=== PATIENT | female | born 1985 | race African-American/Black ===

== ENCOUNTER 2019-12-21 23:16 | Inpatient (IN) | payer BC ==
--- NOTE | 2019-12-21 23:30 | PDOC ---
ED Treatment Course - LABORATORY CBC & Chemistry Diagram: 12/22/19 00:10 12/22/19 00:10 Medical Decision Making - Medical Decision Making 12/21/19 23:29 Patient seen by the advanced practice provider under my supervision. Ancillary testing reviewed as necessary. I agree with plan as outlined by the advanced practice provider. Discharge - Discharge Information Problems reviewed: Yes Clinical Impression/Diagnosis: Abdominal pain, Elevated lipase - Follow up/Referral Referrals: Shyanne Ware MD [Primary Care Provider] - - Patient Discharge Instructions - Post Discharge Activity
[2019-12-21 23:32] VITALS: BMI 31.9
[2019-12-21] MEDS ORDERED: MAG HYDROX/AL HYDROX/SIMETH 30 ML UNIT-DOSE CUP PO ONE (23:33)
[2019-12-21] MEDS ORDERED: PANTOPRAZOLE SODIUM 40 MG VIAL IVPUSH ONE (23:33)
[2019-12-21] MEDS ORDERED: ONDANSETRON 4 MG/2 ML VIAL IVPUSH ONE (23:34)
--- NOTE | 2019-12-21 23:40 | PDOC ---
History of Present Illness - General Chief Complaint: Pain Stated Complaint: ABDOMINAL PAIN Time Seen by Provider: 12/21/19 23:26 - History of Present Illness Initial Comments: 34-year-old female no significant past medical history presents the ED complaining of nausea vomiting diarrhea since Thursday with associated intermittent crampy abdominal pain. Patient states on Thursday she felt bloated and took some magnesium citrate which caused her to have abdominal pain and several bouts of diarrhea followed by numerous nonbloody nonbilious episodes of vomiting. Patient states that the vomiting and diarrhea have subsided today however the crampy abdominal pain has persisted. Patient has not taken any medicine for relief. Patient states she is tolerating small amounts of p.o. fluid and food. Of note patient has a past surgical history of abdominoplasty as well as in August. Pt otherwise denies: fevers, chills, syncope, lightheadedness, dizziness, headaches, neck pain, chest pain, shortness of breath, palpitations, back pain, constipation, dysuria, hematuria 12/21/19 23:35 Past History - Medical History Allergies/Adverse Reactions: Allergies Allergy/AdvReac Type Severity Reaction Status Date / Time No Known Allergies Allergy Verified 12/21/19 23:32 Home Medications: Ambulatory Orders Pnv No.95/Ferrous Fum/Folic AC [ Vitamin Tablet] 1 each PO DAILY 09/09/19 Sertraline HCl [Zoloft] 100 mg PO DAILY 09/09/19 COPD: No - Surgical History Gastric Stapling: Yes - Immunization History Td Vaccination: No (unknown) Immunization Up to Date: Yes - Psycho-Social/Smoking History Smoking Status: No Smoking History: Never smoked Years of Tobacco Use: 0 Have you smoked in the past 12 months: No Number of Cigarettes Smoked Daily: 0 Cigars Per Day: 0 Information on smoking cessation initiated: No - Substance Abuse Hx (Audit-C & DAST Scrn) How often the patient has a drink containing alcohol: Monthly or less Number of drinks the patient has on a typical day: 1 or 2 How often the patient has six or more drinks on one occasion: Never Score: In Men: 4 or > Positive; In Women: 3 or > Positive: 1 Screen Result (Pos requires Nsg. Audit-10AR): Negative In the last yr the pt used illegal drug/Rx for NonMed reason: No Score: Yes response is considered Positive: 0 Screen Result (Positive result requires Nsg. DAST-10): Negative Review of Systems - Review of Systems Constitutional: No: Fever, Weakness HEENTM: No: Blurred Vision, Difficulty Swallowing Respiratory: No: Cough, Shortness of Breath, SOB with Exertion, SOB at Rest Cardiac (ROS): No: Chest Pain, Lightheadedness ABD/GI: Yes: Abdominal Distended, Diarrhea, Nausea, Vomiting. No: Blood Streaked Bowels, Constipated : No: Burning, Dysuria Musculoskeletal: No: Back Pain, Gout, Joint Pain, Muscle Weakness Integumentary: No: Bruising Neurological: No: Headache, Numbness, Paresthesia, Seizure Hematologic/Lymphatic: No: Anemia *Physical Exam - Vital Signs Last Vital Signs Temp Pulse Resp BP Pulse Ox 97.8 F 90 17 121/66 97 12/21/19 23:26 12/21/19 23:26 12/21/19 23:26 12/21/19 23:26 12/21/19 23:26 - Physical Exam Gen: AAOx 3, no acute distress, comfortable, no signs of respiratory distress HENT: atraumatic, normocephalic with no laceration or contusion. Nasal mucosa without erythema. Oropharynx without erythema or exudates. Mucous membranes moist. EYES: PERRL, EOM intact, conjunctiva pink NECK: supple; trachea midline; no JVD, no lymphadenopathy, or thyromegaly CV: RRR no murmurs, gallops, or rubs. CHEST: CTA b/l no wheezing, rales or rhonchi ABD: +BS/ND. mildly TTP in all 4 quadrants; soft, no rebound, no guarding EXTREMITY: no cyanosis or erythema. 2+ dorsalis pedis, posterior tibial, and radial pulse. No pedal edema; no calf swelling or tenderness SKIN: no rash, warm and dry, no diaphoresis HEME: no purpura or ecchymosis NEURO: normal speech, CN II-XII intact, sensation intact, normal gait, no cerebellar deficits MS: 5/5 strength in all extremities, FROM intact in all extremities. 12/21/19 23:41 ED Treatment Course - LABORATORY CBC & Chemistry Diagram: 12/22/19 00:10 12/22/19 00:10 Medical Decision Making - Medical Decision Making 34-year-old female no significant past medical history 4 days of diffuse abdominal pain with associated nausea vomiting diarrhea. Past surgical history of abdominal plasty and . Vital signs stable Plan Will obtain labs to assess for infection electrolyte abnormalities anemia pancreatitis hepatitis and Will give Maalox Zofran and Protonix for symptomatic relief CT AP with contrast to assess for abdominal pathology Will reassess based on results Labs show: WBC 6.8 H&H: 12.6/36.5 PLT: 306 Cr: 0.8 AST 63 Alk Phos 145 Lipase: 698 T Bili 0.4 Upon further interview pt admits to ETOH abuse drinking 5 beers or more a day everyday for "quite some time now" Wet read of US shows gallstones with CBD dilation Pending CT and US read labs suspicious for Gallstone pancreatitis vs Cholecystitis w/ alcoholic pancreatitis. Pt made NPO and given 2L NS. Pt admitted to medicine pending official CT and US reads for further management 12/22/19 01:28 12/22/19 01:30 Discharge - Discharge Information Problems reviewed: Yes Clinical Impression/Diagnosis: Elevated lipase Abdominal pain Qualifiers: Abdominal location: right upper quadrant Qualified Code(s): R10.11 - Right upper quadrant pain - Admission Yes - Follow up/Referral Referrals: Shyanne Ware MD [Primary Care Provider] - - Patient Discharge Instructions - Post Discharge Activity
[2019-12-21] MEDS ORDERED: SODIUM CHLORIDE 0.9% 500 ML INFUS.BAG IV ONE (23:43)
[2019-12-22] MEDS ORDERED: MAG HYDROX/AL HYDROX/SIMETH 30 ML UNIT-DOSE CUP ONE (00:02)
[2019-12-22] MEDS ORDERED: PANTOPRAZOLE SODIUM 40 MG VIAL ONE (00:03)
[2019-12-22 00:32] LABS: BASO % 0.6 % (0-2.0); EOS % 1.9 % (0-4.5); HEMATOCRIT 36.5 % (32.4-45.2); HEMOGLOBIN 12.6 GM/dL (10.7-15.3); LYMPH % 23.1 % (8-40); MCH 28.2 pg (25.7-33.7); MCHC 34.5 g/dl (32.0-36.0); MEAN CELL VOLUME 81.8 fl (80-96); MEAN PLT VOLUME 7.7 fl (7.5-11.1); MONO % 9.2 % (3.8-10.2); NEUT % 65.2 % (42.8-82.8); PLATELET COUNT 306 K/MM3 (134-434); RBC 4.47 M/mm3 (3.60-5.2); RDW 14.7 % (11.6-15.6); WHITE BLOOD COUNT 6.8 K/mm3 (4.0-10.0)
[2019-12-22 00:46] LABS: INR 0.98 (0.83-1.09); PROTHROMBIN TIME (PATIENT) 11.6 SEC (9.7-13.0)
[2019-12-22 00:49] LABS: ACTIVATED PTT 44.2 SECONDS (25.2-36.5)
[2019-12-22 01:02] LABS: ALBUMIN 3.7 g/dl (3.4-5.0); BILIRUBIN,TOTAL 0.4 mg/dL (0.2-1); BLOOD UREA NITROGEN 10.9 mg/dL (7-18); CALCIUM 8.8 mg/dL (8.5-10.1); CREATININE 0.8 mg/dL (0.55-1.3); POTASSIUM 3.5 mmol/L (3.5-5.1)
[2019-12-22] MEDS ORDERED: SODIUM CHLORIDE 0.9% 500 ML INFUS.BAG IV ONE (01:12)
[2019-12-22 02:06] LABS: EPI CELLS >36 /uL (0-25.1); HYALINE CASTS 0 /uL (0-3.1); URINE APPEARANCE CLEAR; URINE BACTERIA 605 /uL (0-1359); URINE BILIRUBIN NEGATIVE (NEGATIVE); URINE COLOR YELLOW; URINE GLUCOSE (UA) NEGATIVE (NEGATIVE); URINE KETONE NEGATIVE (NEGATIVE); URINE LEUK ESTERASE TRACE (NEGATIVE); URINE NITRITE NEGATIVE (NEGATIVE); URINE PROTEIN NEGATIVE (NEGATIVE); URINE RBC 4 /uL (0-23.9); URINE UROBILINOGEN 0.2 mg/dL (0.2-1.0); URINE WBC 19 /uL (0-25.8)
--- NOTE | 2019-12-22 03:03 | PN ---
Teaching Attending Note Name of Resident: Yves Akers ATTENDING PHYSICIAN STATEMENT I saw and evaluated the patient. I reviewed the resident's note and discussed the case with the resident. I agree with the resident's findings and plan as documented. SUBJECTIVE: Patient is a 34 year old woman with PMH of Alcohol abuse, Abdominoplasty, Depres hasmukh (on Zoloft), Gestational diabetes and (August 2019 - baby still in NICU) who presents to the ER complaining of nausea, vomiting, diarrhea and intermittent crampy abdominal pain for 4 days. Patient states on Thursday she felt bloated and took some Magnesium citrate which caused her to have abdominal pain and several bouts of diarrhea followed by numerous nonbloody nonbilious episodes of vomiting. Patient states that the vomiting and diarrhea subsided today but the crampy abdominal pain has persisted. Patient has not taken any medicine for relief. Patient states she is tolerating small amounts of fluid and food. Patient denies fevers, chills, syncope, lightheadedness, dizziness, headaches, neck pain, chest pain, shortness of breath, palpitations, back pain, constipation, dysuria or hematuria. Denies tobacco or illicit drug use. No sick contacts or recent travels. Family history is unremarkable. OBJECTIVE: Alert Vital Signs Period Temp Pulse Resp BP Sys/Maya Pulse Ox Last 24 Hr 97.8 F 90 17 121/66 97 HEENT: No Jaundice, eye redness or discharge, PERRLA, EOMI. Normocephalic, atraumatic. External ears are normal and hearing is grossly intact. No nasal discharge. Neck: Supple, nontender. No palpable adenopathy or thyromegaly. No JVD Chest: Good effort. Clear to auscultation and percussion. Heart: Regular. No S3, rub or murmur Abdomen: Not distended, soft, RUQ and epigastric tenderness and no HSM. No rebound or guarding. Normal bowel sounds. Ext: Peripheral pulses intact. No leg edema. Skin: Warm and dry. No petechiae, rash or ecchymosis. Neuro: Alert. Oriented x3. CN 2-12 grossly intact. Sensation grossly intact in all four extremities and DTR are symmetric. Psych: Appropriate mood and affect. Good insight. Home Medications Medication Instructions Recorded Pnv No.95/Ferrous Fum/Folic AC 1 each PO DAILY 09/09/19 [ Vitamin Tablet] Sertraline HCl [Zoloft] 100 mg PO DAILY 09/09/19 Abnormal Lab Results 12/22/19 12/22/19 12/22/19 00:10 00:10 01:40 PTT (Actin FS) 44.2 H AST 63 H Alkaline Phosphatase 145 H Lipase 698 H Ur Specific [place] 1.008 L Urine Blood 1+ H Current Medications Generic Name Dose Route Start Last Admin Trade Name Patt PRN Reason Stop Dose Admin Lactated Ringer's 1,000 mls @ 200 mls/hr 12/22/19 04:15 Lactated Ringers Solution IV ASDIR HUNTER Piperacillin Sod/Tazobactam 50 mls @ 100 mls/hr 12/22/19 04:30 Sod 3.375 gm/ Dextrose IVPB Q8H-IV HUNTER Protocol Piperacillin Sod/Tazobactam 50 mls @ 100 mls/hr 12/22/19 04:45 Sod 3.375 gm/ Dextrose IVPB 12/23/19 02:29 Q8H-IV HUNTER Protocol Ketorolac Tromethamine 15 mg 12/22/19 04:23 Toradol Injection - IM 12/22/19 14:29 Q6H PRN PAIN LEVEL 7 - 10 ASSESSMENT AND PLAN: 1. Cholecystitis/Gallstone pancreatitis - Preliminary read of the abdomen ultrasound shows gall stones and common bile duct dilatation. Result of CT abdomen/pelvis show probable cholecystitis without significant biliary duct dilatation. ER staff prescribed Mylanta, Zofran, protonix and IV NS for the patient. Hepatitis serology pending. Will keep her NPO, get lipid profile, MRCP, trend LFTs, treat with IV LR at 200 ml/hour, use IV Morphine for pain control and consult GI and Surgery. Viral testing for COVID-19 ordered and patient placed on airborne, droplet and contact isolation. EKG shows NSR at 72/minute and QTc [address]-T wave changes. Will continue comprehensive care for all of patients comorbid conditions. 2. Alcohol abuse - Implement [facility] alcohol withdrawal protocol and do neurochecks. Implement seizure, fall and aspiration precautions. Treat with IV Banana bag, thiamine and folic acid. Monitor and replete electrolytes (Ca,Mg,K,P). Counseled patient about abstaining from alcohol. Will consult intelligence research specialist and refer to alcohol detox upon discharge. 3. Obesity Counseled on the risks associated with obesity. Will provide patient all the necessary assistance, counseling and positive reinforcement to facilitate weight loss. Consult car changer. 4. DVT prophylaxis - Lovenox 40 mg SQ q 24 hours. 5. Advance directives - Full code
[2019-12-22] MEDS ORDERED: LACTATED RINGERS SOLUTION 1,000 ML IV SCH ×4 (04:15→15:50)
[2019-12-22] MEDS ORDERED: KETOROLAC TROMETHAMINE 30 MG/1 ML VIAL IM PRN (04:23)
[2019-12-22] MEDS ORDERED: PIPERACILLIN/TAZOB 3.375 GM 3.375 GM/50 ML BAG IVPB ONE ×2 (04:50→11:50)
[2019-12-22] MEDS: PIPERACILLIN/TAZOB 3.375 GM 3.375 GM in DEXTROSE 5%-WATER - 50 ML IVPB SCH ×3 (04:56→16:40)
--- NOTE | 2019-12-22 05:13 | HP ---
CHIEF COMPLAINT: Nausea, vomiting and diarrhea since 12/16 + intermittent abdominal pain PCP: Dr. Shyanne Ware HISTORY OF PRESENT ILLNESS: Pt is a 34 yo F with PMHx of alcohol abuse, abdominoplasty and . Pt states she has been having nausea, vomiting, diarrhea and intermittent crampy abdominal pain since 12/16. Pt states she felt bloated and took Magnesium Citrate, which caused abdominal pain, nausea and vomiting. Pt states she has not had any episodes of vomiting or diarrhea since yesterday. However, she still has abomdinal pain and still constipated with no BM in 2 days. Pt has 3/10 pain currently, but it can reach up to 7/10 at its most severe. Pt states it is mainly in the middle of her stomach without radiation, and describes the pain as a crampy, bloated sensation. Pt states she can only tolerate small amounts of food. Pt denies fever, chills, night sweats, CP, cough, SOB, urinary urgency or frequency. FAMILY HISTORY: Unremarkable Recent Travel: Denies PAST MEDICAL HISTORY: Denies PAST SURGICAL HISTORY: Abdominoplasty Social History: Smoking: Denies Alcohol: 5 beers daily Drugs: Denies Allergies No Known Allergies Allergy (Verified 12/21/19 23:32) HOME MEDICATIONS: Home Medications Medication Instructions Recorded Pnv No.95/Ferrous Fum/Folic AC 1 each PO DAILY 09/09/19 [ Vitamin Tablet] Sertraline HCl [Zoloft] 100 mg PO DAILY 09/09/19 REVIEW OF SYSTEMS CONSTITUTIONAL: Absent: fever, chills, diaphoresis, generalized weakness, malaise, loss of appetite, weight change HEENT: Absent: rhinorrhea, nasal congestion, throat pain, throat swelling, difficulty swallowing, mouth swelling, ear pain, eye pain, visual changes CARDIOVASCULAR: Absent: chest pain, syncope, palpitations, irregular heart rate, lightheadedness, peripheral edema RESPIRATORY: Absent: cough, shortness of breath, dyspnea with exertion, orthopnea, wheezing, stridor, hemoptysis GASTROINTESTINAL: Admits to nausea, constipation and RUQ and epigastric abdominal pain Absent: abdominal distension, vomiting, diarrhea, melena, hematochezia GENITOURINARY: Absent: dysuria, frequency, urgency, hesitancy, hematuria, flank pain, genital pain MUSCULOSKELETAL: Absent: myalgia, arthralgia, joint swelling, back pain, neck pain SKIN: Absent: rash, itching, pallor HEMATOLOGIC/IMMUNOLOGIC: Absent: easy bleeding, easy bruising, lymphadenopathy, frequent infections ENDOCRINE: Absent: unexplained weight gain, unexplained weight loss, heat intolerance, cold intolerance NEUROLOGIC: Absent: headache, focal weakness or paresthesias, dizziness, unsteady gait, seizure, mental status changes, bladder or bowel incontinence PSYCHIATRIC: Absent: anxiety, depression, suicidal or homicidal ideation, hallucinations. PHYSICAL EXAMINATION Vital Signs - 24 hr 12/21/19 23:26 Temperature 97.8 F Pulse Rate 90 Respiratory 17 Rate Blood Pressure 121/66 O2 Sat by Pulse 97 Oximetry (%) GENERAL: Awake, alert, and fully oriented, in no acute distress. HEAD: Normal with no signs of trauma. EYES: Pupils equal, round and reactive to light, extraocular movements intact, sclera anicteric, conjunctiva clear. No lid lag. EARS, NOSE, THROAT: Ears normal, nares patent, oropharynx clear without exudates. Moist mucous membranes. NECK: Normal range of motion, supple without lymphadenopathy, JVD, or masses. LUNGS: Breath sounds equal, clear to auscultation bilaterally. No wheezes, and no crackles. No accessory muscle use. HEART: Regular rate and rhythm, normal S1 and S2 without murmur, rub or gallop. ABDOMEN: Epigastric and RUQ tenderness. Soft, nontender, not distended, normoactive bowel sounds, no guarding, no rebound, no masses. No hepatomegaly or splenomegaly. MUSCULOSKELETAL: Normal range of motion at all joints. No bony deformities or tenderness. No CVA tenderness. UPPER EXTREMITIES: 2+ pulses, warm, well-perfused. No cyanosis. No clubbing. No peripheral edema. LOWER EXTREMITIES: 2+ pulses, warm, well-perfused. No calf tenderness. No peripheral edema. NEUROLOGICAL: Cranial nerves II-XII intact. Normal speech. Normal gait. PSYCHIATRIC: Cooperative. Good eye contact. Appropriate mood and affect. SKIN: Warm, dry, normal turgor, no rashes or lesions noted, normal capillary refill. Laboratory Results - last 24 hr 12/22/19 12/22/19 12/22/19 00:10 00:10 00:10 WBC 6.8 RBC 4.47 Hgb 12.6 Hct 36.5 MCV 81.8 MCH 28.2 MCHC 34.5 RDW 14.7 Plt Count 306 MPV 7.7 Absolute Neuts (auto) 4.4 Neutrophils % 65.2 Lymphocytes % 23.1 Monocytes % 9.2 Eosinophils % 1.9 D Basophils % 0.6 Nucleated RBC % 0 PT with INR INR PTT (Actin FS) Sodium Potassium Chloride Carbon Dioxide Anion Gap BUN Creatinine Est GFR (CKD-EPI)AfAm Est GFR (CKD-EPI)NonAf Random Glucose Lactic Acid Calcium Total Bilirubin AST ALT Alkaline Phosphatase Total Protein Albumin Lipase Beta HCG, Quant < 1.0 Urine Color Urine Appearance Urine pH Ur Specific [place] Urine Protein Urine Glucose (UA) Urine Ketones Urine Blood Urine Nitrite Urine Bilirubin Urine Urobilinogen Ur Leukocyte Esterase Urine WBC (Auto) Urine RBC (Auto) Urine Casts (Auto) U Epithel Cells (Auto) Urine Bacteria (Auto) Blood Type O POSITIVE Antibody Screen Positive Antibody Identification Anti-c Antigen Identification c Antigen - NEGATIVE 12/22/19 12/22/19 12/22/19 00:10 00:10 01:40 WBC RBC Hgb Hct MCV MCH MCHC RDW Plt Count MPV Absolute Neuts (auto) Neutrophils % Lymphocytes % Monocytes % Eosinophils % Basophils % Nucleated RBC % PT with INR 11.60 INR 0.98 PTT (Actin FS) 44.2 H Sodium 140 Potassium 3.5 Chloride 106 Carbon Dioxide 26 Anion Gap 8 BUN 10.9 Creatinine 0.8 Est GFR (CKD-EPI)AfAm 111.48 Est GFR (CKD-EPI)NonAf 96.19 Random Glucose 99 Lactic Acid Calcium 8.8 Total Bilirubin 0.4 AST 63 H ALT 37 Alkaline Phosphatase 145 H Total Protein 7.0 Albumin 3.7 Lipase 698 H Beta HCG, Quant Urine Color Yellow Urine Appearance Clear Urine pH 6.0 Ur Specific [place] 1.008 L Urine Protein Negative Urine Glucose (UA) Negative Urine Ketones Negative Urine Blood 1+ H Urine Nitrite Negative Urine Bilirubin Negative Urine Urobilinogen 0.2 Ur Leukocyte Esterase Trace Urine WBC (Auto) 19 Urine RBC (Auto) 4 Urine Casts (Auto) 0 U Epithel Cells (Auto) >36 Urine Bacteria (Auto) 605 Blood Type Antibody Screen Antibody Identification Antigen Identification 12/22/19 01:40 WBC RBC Hgb Hct MCV MCH MCHC RDW Plt Count MPV Absolute Neuts (auto) Neutrophils % Lymphocytes % Monocytes % Eosinophils % Basophils % Nucleated RBC % PT with INR INR PTT (Actin FS) Sodium Potassium Chloride Carbon Dioxide Anion Gap BUN Creatinine Est GFR (CKD-EPI)AfAm Est GFR (CKD-EPI)NonAf Random Glucose Lactic Acid 1.4 Calcium Total Bilirubin AST ALT Alkaline Phosphatase Total Protein Albumin Lipase Beta HCG, Quant Urine Color Urine Appearance Urine pH Ur Specific [place] Urine Protein Urine Glucose (UA) Urine Ketones Urine Blood Urine Nitrite Urine Bilirubin Urine Urobilinogen Ur Leukocyte Esterase Urine WBC (Auto) Urine RBC (Auto) Urine Casts (Auto) U Epithel Cells (Auto) Urine Bacteria (Auto) Blood Type Antibody Screen Antibody Identification Antigen Identification ASSESSMENT/PLAN: Pt states she has been having nausea, vomiting, diarrhea and intermittent crampy abdominal pain since 12/16. RUQ US shows gallstones with CBD dilation. Pt admitted for probably acute cholecystitis. #Abdominal pain - Likely acute cholecystitis over gallstone pancreatitis due to RUQ pain with lack of 3x lipase and radiographic findings suggestive of pancreatitis; amylase pending - IV Zosyn for intraabdominal infection - NPO, IV LR @ 200 cc/hour - Consulted GI & surgery - Lipase elevated 698 - AST slightly elevated 63, LFT ordered for AM labs to monitor - avoid Tylenol for pain management, Toradol 15mg Q4h PRN provided - Hepatitis serology pending #Asymptomatic UTI - Trace leuk esterase and 1+ blood - Already being treated with IV Zosyn for intraabdominal infection - Continue to monitor for symptoms FEN - Monitor electrolytes with AM labs - IV LR @ 200cc/hr - NPO Prophylaxis - SCD instead of chemical prophylaxis due to possible surgery. Dispo Monitor pt and follow up on AM labs. Monitor recs from GI and surgery on pt management Family Medical History Family History: Unremarkable Problem List - Problem (1) Abdominal pain Code(s): R10.9 - UNSPECIFIED ABDOMINAL PAIN Qualifiers: Abdominal location: right upper quadrant Qualified Code(s): R10.11 - Right upper quadrant pain (2) Acute calculous cholecystitis Code(s): K80.00 - CALCULUS OF GALLBLADDER W ACUTE CHOLECYST W/O OBSTRUCTION (3) Elevated lipase Code(s): R74.8 - ABNORMAL LEVELS OF OTHER SERUM ENZYMES (4) Post surgical complication Code(s): T81.9XXA - UNSPECIFIED COMPLICATION OF PROCEDURE, INITIAL ENCOUNTER Qualifiers: Surgical complication system/body Area: skin Surgical complication type: unspecified Procedure type: non-dermatologic Qualified Code(s): L76.82 - Other postprocedural complications of skin and subcutaneous tissue (5) with 22 completed weeks gestation Code(s): Z3A.22 - 22 WEEKS GESTATION OF (6) Short cervix affecting Code(s): O26.879 - CERVICAL SHORTENING, UNSPECIFIED TRIMESTER Visit type - Emergency Visit Emergency Visit: Yes ED Registration Date: 12/22/19 Care time: The patient presented to the Emergency Department on the above date and was hospitalized for further evaluation of their emergent condition. - New Patient This patient is new to me today: Yes Date on this admission: 12/23/19 - Critical Care Critical Care patient: No ATTENDING PHYSICIAN STATEMENT I saw and evaluated the patient. I reviewed the resident's note and discussed the case with the resident. I agree with the resident's findings and plan as documented. SUBJECTIVE: OBJECTIVE: ASSESSMENT AND PLAN:
[2019-12-22 06:05] LABS: BASO % 0.6 % (0-2.0); EOS % 1.2 % (0-4.5); HEMATOCRIT 35.7 % (32.4-45.2); HEMOGLOBIN 12.2 GM/dL (10.7-15.3); LYMPH % 33.3 % (8-40); MCH 27.7 pg (25.7-33.7); MCHC 34.1 g/dl (32.0-36.0); MEAN CELL VOLUME 81.2 fl (80-96); MEAN PLT VOLUME 7.7 fl (7.5-11.1); MONO % 7.9 % (3.8-10.2); PLATELET COUNT 300 K/MM3 (134-434); RDW 14.6 % (11.6-15.6); WHITE BLOOD COUNT 5.8 K/mm3 (4.0-10.0)
[2019-12-22 06:32] LABS: ALBUMIN 3.4 g/dl (3.4-5.0); BILIRUBIN,DIRECT 0.1 mg/dL (0.0-0.2); BILIRUBIN,TOTAL 0.3 mg/dL (0.2-1); BLOOD UREA NITROGEN 7.3 mg/dL (7-18); CALCIUM 8.2 mg/dL (8.5-10.1); CREATININE 0.7 mg/dL (0.55-1.3); MAGNESIUM 2.1 mg/dL (1.8-2.4); PHOSPHOROUS 3.6 mg/dL (2.5-4.9); POTASSIUM 3.6 mmol/L (3.5-5.1); TOT PROT 6.3 g/dl (6.4-8.2)
--- NOTE | 2019-12-22 08:37 | CON.GI ---
Consult Consult Specialty:: GI Referred by:: Hospitalist service Reason for Consultation:: Abdominal Pain - History of Present Illness Chief Complaint: Abdominal Pain History of Present Illness: 34F admitted for evaluation of abdominal pain. States that her issues initially started Thursday about 30 mins-1 hour after eating a hamburger. She described a feeling of bloating. This led to her drinking magnesium citrate because she thought she was constipated, She vomited a portion of mag citrate and had cramps along with loose bowel movements. Her pain persisted in thursday ane eventually let up thu-thu. Thursday night, however, her pain recurred later in the evening prompting her ER evaluation. AST and ALP were elevated as was lipase. She had an abdomina US revealing a thick walled gallbladder with pericholecystic fluid. CT scan revealed findings c/w acute cholecystits and hepatosplenomegaly. She drinks 4-5 alcoholic drinks per day. 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 [employer] History of Recent Travel: No Home Medications - Allergies Allergies/Adverse Reactions: Allergies Allergy/AdvReac Type Severity Reaction Status Date / Time No Known Allergies Allergy Verified 12/21/19 23:32 - Home Medications Home Medications: Ambulatory Orders Pnv No.95/Ferrous Fum/Folic AC [ Vitamin Tablet] 1 each PO DAILY 09/09/19 Sertraline HCl [Zoloft] 100 mg PO DAILY 09/09/19 Family Medical History Other Family History: Mother: Alive: HTN / DM II. Father: : cancer, unknown type. 2 brothers, 4 sisters: healthy. 2 sons: 1 currently in NICU Review of Systems - Review of Systems Constitutional: reports: Loss of Appetite. denies: Chills, Fever Respiratory: denies: Cough Gastrointestinal: reports: Abdominal Pain, Bloating, Nausea, Vomiting Physical Exam-GI Vital Signs: Vital Signs Temperature 97.8 F 12/21/19 23:26 Pulse Rate 72 12/22/19 06:20 Respiratory Rate 18 12/22/19 06:20 Blood Pressure 112/61 12/22/19 06:20 O2 Sat by Pulse Oximetry (%) 97 12/22/19 06:20 Constitutional: Yes: Calm Eyes: No: Sclera Icterus Cardiovascular: Yes: Regular Rate and Rhythm. No: Murmur Respiratory: Yes: CTA Bilaterally Gastrointestinal Inspection: Yes: Scars (lap band port scar, healed trochar scars, abdominoplasty scar). No: Distention ...Auscultate: Yes: Normoactive Bowel Sounds ...Palpate: Yes: Soft, Tenderness (TTP RUQ), Other (Palpable lap band port in LUQ). No: Guarding ...Percussion: No: Tympanitic Edema: No (No LE edema) Neurological: Yes: Alert Labs: CBC, BMP 12/22/19 05:47 12/22/19 05:47 INR, PTT INR 0.98 (0.83-1.09) 12/22/19 00:10 Hepatic Panel Total Bilirubin 0.3 mg/dL (0.2-1) 12/22/19 05:47 Direct Bilirubin 0.1 mg/dL (0.0-0.2) 12/22/19 05:47 AST 34 U/L (15-37) 12/22/19 05:47 ALT 31 U/L (13-61) 12/22/19 05:47 Alkaline Phosphatase 127 U/L (45-117) H 12/22/19 05:47 Albumin 3.4 g/dl (3.4-5.0) 12/22/19 05:47 Imaging - Results Cat Scan: Report Reviewed, Image Reviewed Ultrasound: Report Reviewed Problem List - Problems (1) Acute calculous cholecystitis Assessment/Plan: With continued RUQ pain: Lipase was elevated, however not 3 X ULN and without CT evidence of acute pancreatitis Mild ALP and AST elevation may reflect preexisting liver dysfunction from alcohol consumption (do not know baseline and she drinks 4-5 beers per day), possibly passed CBD stone (improving trend), or combination Advise: NPO except meds IV Hydration IV Abx Surgical evaluation MRCP Monitor LFTs Code(s): K80.00 - CALCULUS OF GALLBLADDER W ACUTE CHOLECYST W/O OBSTRUCTION
--- NOTE | 2019-12-22 11:45 | CONSULT ---
- Consultation REQUESTING PROVIDER: CONSULT REQUEST: We have been asked to surgically evaluate this patient for acute cholecystitis PCP:Christian Navarrete MD HISTORY OF PRESENT ILLNESS: 34yo F presented with 2 day of diffuse abd pain. Pt states pain is associated with n/v. Pt states she never had this pain til this week. Pt was never told she had gallstones in the past. Pt denies fever, chills. PMHx: denies PSHx: Gastric band placement 2008, Abdominalplasty Home Medications Medication Instructions Recorded Pnv No.95/Ferrous Fum/Folic AC 1 each PO DAILY 09/09/19 [ Vitamin Tablet] Sertraline HCl [Zoloft] 100 mg PO DAILY 09/09/19 Allergies Allergy/AdvReac Type Severity Reaction Status Date / Time No Known Allergies Allergy Verified 12/21/19 23:32 PHYSICAL EXAM: GENERAL: Awake, alert, and fully oriented, in no acute distress. HEAD: Normal with no signs of trauma. EYES: PERRL, sclera anicteric, conjunctiva clear. NECK: Normal ROM, supple without lymphadenopathy, JVD, or masses. LUNGS: breathing comfortably, No accessory muscle use. HEART: Regular rate and rhythm. ABDOMEN: Soft, epigastric tenderness, not distended, normoactive bowel sounds, no guarding, no rebound, no masses. No organomegaly. MUSCULOSKELETAL: Normal ROM at all joints. No bony deformities or tenderness. No CVA tenderness. UPPER EXTREMITIES: warm, well-perfused. No cyanosis. Cap refill <2 seconds. No peripheral edema. LOWER EXTREMITIES: warm, well-perfused. No calf tenderness. No peripheral edema. NEUROLOGICAL: Normal speech, gait not observed. PSYCH: Cooperative. Good eye contact. Appropriate mood and affect. SKIN: Warm, dry, normal turgor, no rashes or lesions noted. Vital Signs Temperature 97.8 F 12/21/19 23:26 Pulse Rate 72 12/22/19 06:20 Respiratory Rate 18 12/22/19 06:20 Blood Pressure 112/61 12/22/19 06:20 O2 Sat by Pulse Oximetry (%) 97 12/22/19 08:43 Lab Results WBC 5.8 K/mm3 (4.0-10.0) 12/22/19 05:47 RBC 4.40 M/mm3 (3.60-5.2) 12/22/19 05:47 Hgb 12.2 GM/dL (10.7-15.3) 12/22/19 05:47 Hct 35.7 % (32.4-45.2) 12/22/19 05:47 MCV 81.2 fl (80-96) 12/22/19 05:47 MCHC 34.1 g/dl (32.0-36.0) 12/22/19 05:47 RDW 14.6 % (11.6-15.6) 12/22/19 05:47 Plt Count 300 K/MM3 (134-434) 12/22/19 05:47 INR 0.98 (0.83-1.09) 12/22/19 00:10 Sodium 141 mmol/L (136-145) 12/22/19 05:47 Potassium 3.6 mmol/L (3.5-5.1) 12/22/19 05:47 Chloride 109 mmol/L (98-107) H 12/22/19 05:47 Carbon Dioxide 25 mmol/L (21-32) 12/22/19 05:47 Anion Gap 7 MMOL/L (8-16) L 12/22/19 05:47 BUN 7.3 mg/dL (7-18) 12/22/19 05:47 Creatinine 0.7 mg/dL (0.55-1.3) 12/22/19 05:47 Random Glucose 102 mg/dL (74-106) 12/22/19 05:47 Calcium 8.2 mg/dL (8.5-10.1) L 12/22/19 05:47 Blood Type O POSITIVE 12/22/19 00:10 Antibody Screen Positive 12/22/19 00:10 RUQ US: Pericholecystic fluid and sludge noted, consistent with acute cholecystitis Problem List - Problems (1) Acute calculous cholecystitis Assessment/Plan: Plan -will plan to take pt to the OR for lap cholecystectomy -please keep NPO, IVF, abx -discussed surgery with pt who agreed with plan Discussed plan with Dr. Sandy who agrees with plan. Problems reviewed: Yes Code(s): K80.00 - CALCULUS OF GALLBLADDER W ACUTE CHOLECYST W/O OBSTRUCTION
[2019-12-22] MEDS ORDERED: SUCCINYLCHOLINE CHLORIDE 200 MG/10 ML SYRINGE ONE (12:05)
[2019-12-22] MEDS ORDERED: fentaNYL CITRATE 250 MCG/5 ML VIAL ONE (12:05)
[2019-12-22] MEDS ORDERED: EPHEDRINE SULFATE/0.9% NACL/PF 50 MG/10 ML SYRINGE NR ONE (12:05)
[2019-12-22] MEDS ORDERED: PROPOFOL 20 ML ONE (12:05)
[2019-12-22] MEDS ORDERED: MIDAZOLAM HCL 2 MG/2 ML SINGLE DOSE VIAL ONE ×2 (12:06)
[2019-12-22] MEDS ORDERED: ROCURONIUM BROMIDE 50 MG/5 ML SYRINGE ONE ×2 (12:06)
[2019-12-22] MEDS ORDERED: DEXAMETHASONE SOD PHOSPHATE 4 MG/1 ML VIAL ONE (12:07)
[2019-12-22] MEDS ORDERED: ONDANSETRON 4 MG/2 ML VIAL IVPUSH PRN ×2 (12:14→15:50)
[2019-12-22] MEDS ORDERED: HYDROmorphone HCl 2 MG/ML VIAL IVPUSH PRN ×4 (12:14→15:50)
[2019-12-22] MEDS ORDERED: PIPERACILLIN/TAZOBACTAM 3.375 GM VIAL IVPB ONE (12:19)
[2019-12-22] MEDS ORDERED: ACETAMINOPHEN INJECTION 100 ML IVPB ONE (12:20)
[2019-12-22] MEDS ORDERED: GLYCOPYRROLATE 0.2 MG/1 ML VIAL ONE ×2 (13:11)
[2019-12-22] MEDS ORDERED: NEOSTIGMINE METHYLSULFATE 0.5 MG/ML - 10 ML MDV ONE (13:11)
[2019-12-22] MEDS ORDERED: THIAMINE HCL 200 MG/2 ML VIAL IVPB SCH (13:15)
--- NOTE | 2019-12-22 13:25 | PN ---
Teaching Attending Note Name of Resident: Mario Chávez ATTENDING PHYSICIAN STATEMENT I saw and evaluated the patient. I reviewed the resident's note and discussed the case with the resident. I agree with the resident's findings and plan as documented. SUBJECTIVE: Still has ongoing RUQ abdominal pain. Nausea/vomiting resolved. No fever/chills. OBJECTIVE: Afebrile, Hemodynamically Stable. Last Vital Signs Temp Pulse Resp BP Pulse Ox 97.8 F 72 18 112/61 97 12/21/19 23:26 12/22/19 06:20 12/22/19 06:20 12/22/19 06:20 12/22/19 08:43 HEENT - Atraumatic, Normocephalic. Heart - S1, S2, RRR Lungs - clear to auscultation Abdomen - Soft, tender RUQ/Epigasric region, Richey positive. Bowel Sounds normal. Extremities - no edema, no calf tenderness. Neuro - AAO x 3. Tone/Power normal. No tremor. Laboratory Results - last 24 hr 12/22/19 12/22/19 12/22/19 00:10 00:10 00:10 WBC 6.8 RBC 4.47 Hgb 12.6 Hct 36.5 MCV 81.8 MCH 28.2 MCHC 34.5 RDW 14.7 Plt Count 306 MPV 7.7 Absolute Neuts (auto) 4.4 Neutrophils % 65.2 Lymphocytes % 23.1 Monocytes % 9.2 Eosinophils % 1.9 D Basophils % 0.6 Nucleated RBC % 0 PT with INR INR PTT (Actin FS) Sodium Potassium Chloride Carbon Dioxide Anion Gap BUN Creatinine Est GFR (CKD-EPI)AfAm Est GFR (CKD-EPI)NonAf Random Glucose Lactic Acid Calcium Phosphorus Magnesium Total Bilirubin Direct Bilirubin AST ALT Alkaline Phosphatase Total Protein Albumin Triglycerides Cholesterol Total LDL Cholesterol HDL Cholesterol Total Amylase Lipase Beta HCG, Quant < 1.0 Urine Color Urine Appearance Urine pH Ur Specific Cost Urine Protein Urine Glucose (UA) Urine Ketones Urine Blood Urine Nitrite Urine Bilirubin Urine Urobilinogen Ur Leukocyte Esterase Urine WBC (Auto) Urine RBC (Auto) Urine Casts (Auto) U Epithel Cells (Auto) Urine Bacteria (Auto) Blood Type O POSITIVE Antibody Screen Positive Antibody Identification Anti-c Antigen Identification c Antigen - NEGATIVE 12/22/19 12/22/19 12/22/19 00:10 00:10 01:40 WBC RBC Hgb Hct MCV MCH MCHC RDW Plt Count MPV Absolute Neuts (auto) Neutrophils % Lymphocytes % Monocytes % Eosinophils % Basophils % Nucleated RBC % PT with INR 11.60 INR 0.98 PTT (Actin FS) 44.2 H Sodium 140 Potassium 3.5 Chloride 106 Carbon Dioxide 26 Anion Gap 8 BUN 10.9 Creatinine 0.8 Est GFR (CKD-EPI)AfAm 111.48 Est GFR (CKD-EPI)NonAf 96.19 Random Glucose 99 Lactic Acid Calcium 8.8 Phosphorus Magnesium Total Bilirubin 0.4 Direct Bilirubin AST 63 H ALT 37 Alkaline Phosphatase 145 H Total Protein 7.0 Albumin 3.7 Triglycerides Cholesterol Total LDL Cholesterol HDL Cholesterol Total Amylase Lipase 698 H Beta HCG, Quant Urine Color Yellow Urine Appearance Clear Urine pH 6.0 Ur Specific Cost 1.008 L Urine Protein Negative Urine Glucose (UA) Negative Urine Ketones Negative Urine Blood 1+ H Urine Nitrite Negative Urine Bilirubin Negative Urine Urobilinogen 0.2 Ur Leukocyte Esterase Trace Urine WBC (Auto) 19 Urine RBC (Auto) 4 Urine Casts (Auto) 0 U Epithel Cells (Auto) >36 Urine Bacteria (Auto) 605 Blood Type Antibody Screen Antibody Identification Antigen Identification 12/22/19 12/22/19 12/22/19 01:40 05:47 05:47 WBC 5.8 RBC 4.40 Hgb 12.2 Hct 35.7 MCV 81.2 MCH 27.7 MCHC 34.1 RDW 14.6 Plt Count 300 MPV 7.7 Absolute Neuts (auto) 3.3 Neutrophils % 57.0 Lymphocytes % 33.3 D Monocytes % 7.9 Eosinophils % 1.2 Basophils % 0.6 Nucleated RBC % 0 PT with INR INR PTT (Actin FS) Sodium 141 Potassium 3.6 Chloride 109 H Carbon Dioxide 25 Anion Gap 7 L BUN 7.3 Creatinine 0.7 Est GFR (CKD-EPI)AfAm 131.02 Est GFR (CKD-EPI)NonAf 113.04 Random Glucose 102 Lactic Acid 1.4 Calcium 8.2 L Phosphorus 3.6 Magnesium 2.1 Total Bilirubin 0.3 Direct Bilirubin 0.1 AST 34 ALT 31 Alkaline Phosphatase 127 H Total Protein 6.3 L Albumin 3.4 Triglycerides 62 Cholesterol 157 Total LDL Cholesterol 92 HDL Cholesterol 46 Total Amylase 83 Lipase Beta HCG, Quant Urine Color Urine Appearance Urine pH Ur Specific Cost Urine Protein Urine Glucose (UA) Urine Ketones Urine Blood Urine Nitrite Urine Bilirubin Urine Urobilinogen Ur Leukocyte Esterase Urine WBC (Auto) Urine RBC (Auto) Urine Casts (Auto) U Epithel Cells (Auto) Urine Bacteria (Auto) Blood Type Antibody Screen Antibody Identification Antigen Identification Current Medications Generic Name Dose Route Start Last Admin Trade Name Freq PRN Reason Stop Dose Admin Hydromorphone HCl 0.5 mg 12/22/19 12:14 Dilaudid Vial - IVPUSH [id number] PRN PAIN LEVEL 7 - 10 Hydromorphone HCl 0.25 mg 12/22/19 12:15 Dilaudid Vial - IVPUSH [id number] PRN PAIN LEVEL 4 - 6 Piperacillin Sod/Tazobactam 50 mls @ 100 mls/hr 12/22/19 04:30 Sod 3.375 gm/ Dextrose IVPB Q8H-IV HUNTER Protocol Piperacillin Sod/Tazobactam 50 mls @ 100 mls/hr 12/22/19 04:45 12/22/19 11:15 Sod 3.375 gm/ Dextrose IVPB 12/23/19 02:29 100 mls/hr Q8H-IV HUNTER Administration Protocol Lactated Ringer's 1,000 mls @ 150 mls/hr 12/22/19 07:57 12/22/19 09:04 Lactated Ringers Solution IV 150 mls/hr ASDIR HUNTER Administration Lactated Ringer's 1,000 mls @ 75 mls/hr 12/22/19 12:15 Lactated Ringers Solution IV ASDIR HUNTER Ondansetron HCl 4 mg 12/22/19 12:14 Zofran Injection IVPUSH Q6H PRN NAUSEA AND/OR VOMITING Thiamine HCl 200 mg 12/22/19 13:15 Vitamin B1 Injection - IVPB DAILY [facility] Home Medications Medication Instructions Recorded Pnv No.95/Ferrous Fum/Folic AC 1 each PO DAILY 09/09/19 [ Vitamin Tablet] Sertraline HCl [Zoloft] 100 mg PO DAILY 09/09/19 ASSESSMENT AND PLAN: 34 year old female with history of Depression, Alcohol abuse, s/p abdominoplasty and , presents with 5 day history of abdominal pain, nausea, vomiting. 1. Acute Cholecystitis Abdo US - thick walled GB with calculi/sludge and pericholecystic fluid CT A/P - findings suggestive of cute cholecystitis On IV Zosyn Evaluated by Surgery - for OR NPO/IV fluids. 2. Possible CBD Dilation US Abdo - mildly dilated CBD Seen by GI - recommend MRCP. Mild elevation in transaminases, resolved ?sec to passed stone. No evidence of cholangitis. 3. Hx of Alcohol excess No evidence of alcohol withdrawal. IV Thiamine as she is NPO Monitor for any signs of alcohol withdrawal. Hepatomegaly/Fatty Liver on abdominal imaging. 4. Depression - continue Sertraline. DVT Px - Heparin SQ
[2019-12-22] MEDS ORDERED: THIAMINE HCL 200 MG/2 ML VIAL IVPB ONE ×2 (13:31→15:50)
[2019-12-22] MEDS ORDERED: KETOROLAC TROMETHAMINE 30 MG/1 ML VIAL ONE (13:46)
[2019-12-22] MEDS ORDERED: BUPIVACAINE HCL/PF 0.5% (5 MG/ML) 30 ML VIAL IJ ONE (14:04)
--- NOTE | 2019-12-22 14:05 | EKG ---
Test Reason : Blood Pressure : / mmHG Vent. Rate : 072 BPM Atrial Rate : 072 BPM P-R Int : 156 ms QRS Dur : 096 ms QT Int : 394 ms P-R-T Axes : 060 030 031 degrees QTc Int : 431 ms NORMAL SINUS RHYTHM NORMAL ECG WHEN COMPARED WITH ECG OF 05-JUL-2012 02:24, NO SIGNIFICANT CHANGE WAS FOUND Confirmed by VANESA EM MD ([id number]) on 12/22/2019 2:05:27 PM Referred By: Confirmed By:VANESA EM MD
--- NOTE | 2019-12-22 14:33 | OP ---
Operative Note - Note: Operative Date: 12/22/19 Pre-Operative Diagnosis: Acute cholecystitis Operation: Laprascopic cholecystectomy Post-Operative Diagnosis: Same as Pre-op Surgeon: Juan Alberto Sandy Manufacturing Electrician: Denver Nichole Anesthesia: General Specimens Removed: gallbladder Estimated Blood Loss (mls): 30 Fluid Volume Replaced (mls): 1,000 Operative Report Dictated: Yes
--- NOTE | 2019-12-22 14:33 | SURG ---
Surgery Notching Press Operator Note Notching Press Operator: Denver Nichole PA-C Date of Service: 12/22/19 Diagnosis: Acute kelvin Procedure: Laprascopic cholecystectomy I was present for the entirety of the operative procedure. For further detail, please refer to operative report. Visit type - Case Type Case Type: ED Admission - Emergency Emergency Visit: Yes ED Registration Date: 12/22/19 Care time: The patient presented to the Emergency Department on the above date and was hospitalized for further evaluation of their emergent condition. - New patient This patient is new to me today: Yes Date on this admission: 12/22/19
[2019-12-22] MEDS ORDERED: ACETAMINOPHEN 325 MG TABLET (FP) PO PRN (15:38)
[2019-12-22] MEDS ORDERED: ACETAMINOPHEN 1000 MG/100 ML VIAL (NON FORMULARY) IVPB ONE (15:38)
[2019-12-22] MEDS ORDERED: morphine SULFATE 4 MG/ML VIAL IVPUSH PRN (16:03)
[2019-12-22] MEDS: LACTATED RINGERS SOLUTION 1,000 ML IV SCH ×2 (16:15→16:57)
--- NOTE | 2019-12-22 16:18 | PN ---
Progress Note (short form) - Note Progress Note: ID consult dictated imp/reccd seen in RR s/p lap choly d/w surgery- no need for further antibiotics would observe and manage per surgery Problem List - Problems (1) Acute calculous cholecystitis Code(s): K80.00 - CALCULUS OF GALLBLADDER W ACUTE CHOLECYST W/O OBSTRUCTION
[2019-12-22] MEDS ORDERED: oxyCODONE HCL 5 MG TABLET PO PRN (16:29)
--- NOTE | 2019-12-22 17:16 | CONS ---
DATE OF CONSULTATION: DATE OF DICTATION: 12/22/2019 CONSULTATION REQUESTED BY: Hospitalist service CHIEF COMPLAINT/HISTORY OF PRESENT ILLNESS: This is a 34-year-old woman who I am seeing in the recovery room after she just had a laparoscopic cholecystectomy. She presented last night at midnight with complaints of abdominal pain that started after eating a hamburger. She subsequently had some vomiting and loose bowel movements. Her original pain started last Thursday and the pain persisted until she came to the ER, where she was noted to have persistent pain. She has a history of a recent at the end of August at [facility] that she describes as uneventful. She had a premature child, but she was well and discharged home in 2 days. She also has had abdominoplasty as well as a Lap Band in the past. She was noted in the ER to have abnormal LFTs with an AST of 63, alkaline phosphatase of 145. Lipase was 698. She had a workup that included a CAT scan of her abdomen and pelvis, had findings suspicious for acute cholecystitis. She was noted to have diffuse fatty liver as well, and she went to the OR this afternoon and she underwent a laparoscopic cholecystectomy. She is now resting comfortably in the recovery room. She is awake and alert without any complaints. ALLERGIES: She has no known drug allergies. PAST MEDICAL HISTORY: Notable for depression. She is status post recent . PAST SURGICAL HISTORY: Notable for bariatric surgery, bilateral breast augmentation, and abdominoplasty. SOCIAL HISTORY: She drinks 4-5 beers a day. No history of cigarette use. 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 She has been working from home. No history of recent travel. MEDICATIONS: She is taking vitamins, and she takes Zoloft. FAMILY HISTORY: Notable for hypertension, [id number] diabetes. She has 2 children and the baby is still in NICU. REVIEW OF SYSTEMS: Currently she is resting comfortably. She has had no cough or shortness of breath. She had the abdominal complaints of bloating, nausea, vomiting, abdominal pain as per HPI. PHYSICAL EXAMINATION: General: She is awake and alert. Vital Signs: Temp is 99.2. Her pulse is 67, blood pressure 126/61. Respiratory rate is 20. She is saturating 100%. HEENT: She is normocephalic. Her eyes are anicteric. Neck: Supple. Abdomen: Soft. She has a ASHWIN drain intact. Extremities: Without edema. LABORATORY: Notable for a white count of 5.8, hemoglobin 12.2. Platelets are 300,000. Her BUN and creatinine are normal. Her LFTs are now normalizing. UA is negative. COVID serology is pending. IMAGING: As stated. She had a chest x-ray as well, which is notable for no acute lung disease, and both CAT scan and ultrasound of the abdomen are consistent with acute cholecystitis. SUMMARY: This is a 34-year-old woman admitted with acute cholecystitis status post laparoscopic cholecystectomy, who is now on Zosyn. I am asked to see her for antibiotic approval. Would continue the Zosyn as ordered. Will discuss with Surgery whether she needs to have her antibiotics continued. She has no other source of infection and is status post surgery. ALEX PERLA M.D. [id number]
--- NOTE | 2019-12-22 18:15 | OP ---
DATE OF OPERATION: 12/22/2019 PREOPERATIVE DIAGNOSIS: Acute cholecystitis and cholelithiasis. POSTOPERATIVE DIAGNOSIS: Acute cholecystitis and cholelithiasis. PROCEDURE: Laparoscopic cholecystectomy. SURGEON: Juan Alberto Sandy MD. WET SUIT GLUER: Denver Nichole PA-C. ANESTHESIA: General. OPERATIVE FINDINGS: Acute cholecystitis and cholelithiasis. The rest of the findings were unremarkable. PROCEDURE: The patient was placed on the operating table in the supine position and after the induction of general anesthesia the patient's abdomen was prepped with ChloraPrep and draped in sterile fashion. A timeout was taken and pneumoperitoneum established above the umbilicus using a Veress needle. Once 15 mmHg of pressure were obtained, a 5-mm port was placed at the umbilicus and additional lateral 5-mm ports and a subxiphoid 12-mm port. Laparoscopy was carried out and the previously noted findings were observed. Dissection was begun at the neck of the gallbladder where the peritoneum was opened medially and laterally using blunt dissection and electrocautery. The cystic duct was identified coursing from the neck of the gallbladder towards the common bile duct and it was dissected using blunt dissection proximally and distally for length. Similarly, the artery was identified and dissected proximally and distally for length. A critical view of safety was taken and then the duct and the artery were clipped twice proximally and twice distally with large hemoclips. The duct and artery were then serially divided using Endoshears. Hemostasis was checked for and noted to be good and then the gallbladder was removed from the liver bed in a retrograde fashion using electrocautery. Prior to removal from the edge of the liver, hemostasis in the liver bed was again checked for and noted to be good and then the gallbladder removed from the edge of the liver, placed in an EndoCatch, and brought out through the subxiphoid port. Pneumoperitoneum was reestablished. Copious irrigation was carried out with saline. Hemostasis was verified again. A 10-mm Kevin-Jay drain was placed in the right hepatorenal fossa and brought out through 1 of the 5-mm ports and secured to the skin with 2-0 silk suture. All port sites were removed under laparoscopic vision without evidence of bleeding from the port sites. The port sites were infiltrated with 0.5% Marcaine and the skin edges reapproximated with 4-0 Biosyn in a subcuticular continuous fashion. Steri-Strips and Band-Aid dressings were placed. The drain was connected to bulb suction and then the patient aroused from general anesthesia and transferred to the postanesthesia care unit in stable condition, awake and alert. ESTIMATED BLOOD LOSS: 30 mL. REPLACEMENT: Crystalloid. DRAINS: One 10-mm Kevin-Jay. SPECIMEN: Gallbladder and contents to Pathology. I, Juan Alberto Sandy, was physically present in the operating room from the time the patient was placed on the operating table until she was transferred to the postanesthesia care unit in my accompaniment. MD CARMINA De La [id number] MTDD
[2019-12-22] MEDS: SERTRALINE HCL 50 MG TABLET (FP) PO SCH (18:37)
[2019-12-23] MEDS ORDERED: HEPARIN NA (PORCINE) 5,000 UNITS/ML 1ML VIAL SQ SCH ×2 (06:00)
[2019-12-23] MEDS: LACTATED RINGERS SOLUTION 1,000 ML IV SCH (06:49)
[2019-12-23 07:57] LABS: HEMATOCRIT 32.9 % (32.4-45.2); MCH 27.3 pg (25.7-33.7); MCHC 33.5 g/dl (32.0-36.0); MEAN CELL VOLUME 81.4 fl (80-96); MEAN PLT VOLUME 7.9 fl (7.5-11.1); PLATELET COUNT 286 K/MM3 (134-434); RBC 4.03 M/mm3 (3.60-5.2); RDW 14.6 % (11.6-15.6); WHITE BLOOD COUNT 6.1 K/mm3 (4.0-10.0)
[2019-12-23 08:16] LABS: BILIRUBIN,TOTAL 0.4 mg/dL (0.2-1); CALCIUM 8.8 mg/dL (8.5-10.1); CREATININE 0.6 mg/dL (0.55-1.3); MAGNESIUM 2.1 mg/dL (1.8-2.4); PHOSPHOROUS 3.8 mg/dL (2.5-4.9); POTASSIUM 3.4 mmol/L (3.5-5.1); TOT PROT 5.9 g/dl (6.4-8.2)
--- NOTE | 2019-12-23 08:16 | PN ---
Progress Note (short form) - Note Progress Note: GENERAL SURGERY POD #1 No acute events per RN notes since surgery. Alert. Resting comfortably. C/o mild incisional tenderness. Adequate pain contol with medications ordered. She's brent oob and ambulating unassisted to bathroom -- voiding spontaneously. Tolerated clear diet. Denies n/v/f/c, CP, palpitations, SOB or LARA. Last Vital Signs Temp Pulse Resp BP Pulse Ox 99.2 F 78 20 133/77 100 12/23/19 06:00 12/23/19 06:00 12/23/19 06:00 12/23/19 06:00 12/22/19 17:16 CBC 12/23/19 06:33 Gen: a&o.nad Pulm: unlabored respirations on ra Cor: rrr Abd: obese habitus. all surgical ports c/d/i. ASHWIN 90 (mostly irrigation) -- dc'd while on rounds Le: all compartments soft. SCDs bilat. Problem List - Problems (1) S/P laparoscopic cholecystectomy Assessment/Plan: POD #1 s/p Lap kelvin. Doing well. Feels much better. Pain controlled. Advanced to regular diet Cleared for dc home from surgical service Pt to f/u with Dr. Sandy as outlined in DC PLANNING tab. Above plan discussed with my attending and agrees. On behalf of Dr. Sandy, thank you for the opportunity to participate in your patient's care. Code(s): Z90.49 - ACQUIRED ABSENCE OF OTHER SPECIFIED PARTS OF DIGESTIVE TRACT (2) Acute calculous cholecystitis Code(s): K80.00 - CALCULUS OF GALLBLADDER W ACUTE CHOLECYST W/O OBSTRUCTION
[2019-12-23] MEDS ORDERED: POTASSIUM CHLORIDE TABS 20 MEQ TABLET.ER (FP) PO ONE (09:22)
[2019-12-23] MEDS ORDERED: THIAMINE HCL 200 MG/2 ML VIAL IVPB SCH (10:00)
[2019-12-23] MEDS ORDERED: FERROUS SO4 325 MG TABLET (FP) PO SCH (10:00)
[2019-12-23] MEDS ORDERED: PANTOPRAZOLE SODIUM 40 MG VIAL IVPUSH SCH ×2 (10:00)
[2019-12-23] MEDS: SERTRALINE HCL 50 MG TABLET (FP) PO SCH (10:21)
[2019-12-23 10:45] VITALS: BP 110/80; PULSE 80; TEMP 99.1
--- NOTE | 2019-12-23 13:04 | DS ---
Physical Exam: SUBJECTIVE: RUQ abdominal pain resolved. tolerating normal intake. Nausea/vomiting resolved. No fever/chills. OBJECTIVE: Afebrile, Hemodynamically Stable. Last Vital Signs Temp Pulse Resp BP Pulse Ox 99.1 F 80 20 110/80 100 12/23/19 09:00 12/23/19 09:00 12/23/19 09:00 12/23/19 09:00 12/23/19 09:00 HEENT - Atraumatic, Normocephalic. Heart - S1, S2, RRR Lungs - clear to auscultation Abdomen - Soft, tochar sites clean. Mildly tender post-op abdomen. No guarding/rebound. Bowel Sounds normal. Extremities - no edema, no calf tenderness. Neuro - AAO x 3. Tone/Power normal. No tremor. Laboratory Results - last 24 hr 12/22/19 12/23/19 12/23/19 00:10 06:33 06:33 WBC 6.1 RBC 4.03 Hgb 11.0 Hct 32.9 MCV 81.4 MCH 27.3 MCHC 33.5 RDW 14.6 Plt Count 286 MPV 7.9 Sodium 141 Potassium 3.4 L Chloride 106 Carbon Dioxide 27 Anion Gap 8 BUN 5.0 L Creatinine 0.6 Est GFR (CKD-EPI)AfAm 137.83 Est GFR (CKD-EPI)NonAf 118.92 Random Glucose 85 Calcium 8.8 Phosphorus 3.8 Magnesium 2.1 Total Bilirubin 0.4 AST 42 H ALT 43 Alkaline Phosphatase 91 Total Protein 5.9 L Albumin 3.0 L Hep A IgM Ab Confirm Negative Hep Bs Antigen Negative Hep B Core IgM Ab Negative Hepatitis C Ab (EIA) <0.1 Discharge Medications Medication Instructions Recorded Pnv No.95/Ferrous Fum/Folic AC 1 each PO DAILY 09/09/19 [ Vitamin Tablet] Sertraline HCl [Zoloft] 100 mg PO DAILY 09/09/19 Docusate Sodium [Docusate 100 mg] 100 mg PO BID 12/22/19 Ferrous Sulfate 325 mg PO DAILY 12/22/19 Ibuprofen 600 mg PO Q6H 12/22/19 Simethicone 80 mg PO Q6H PRN 12/22/19 oxyCODONE HCL [Roxicodone -] 5 mg PO Q4H PRN #20 tablet MDD 6 12/22/19 Thiamine HCl [B-1] 100 mg PO DAILY #30 tablet 12/23/19 Date of Admission:12/22/19 Date of Discharge: 12/23/19 Minutes to complete discharge: 45 Discharge Summary Problems reviewed: Yes Reason For Visit: CHOLECYSTITIS,PANCREATITIS Current Active Problems Abdominal pain (Acute) Acute calculous cholecystitis (Acute) Elevated lipase (Acute) S/P laparoscopic cholecystectomy (Acute) Hospital Course: 34 year old female with history of Depression, Alcohol abuse, s/p abdominoplasty and , presents with 5 day history of abdominal pain, nausea, vomiting. She was evaluated by Surgery and successfully underwent laparoscopic cholecystectomy 12/22/19. she is currently pain free, afebrile, hemodynamically stable, tolerating oral intake and passing flatus. 1. Acute Cholecystitis Abdo US - thick walled GB with calculi/sludge and pericholecystic fluid CT A/P - findings suggestive of cute cholecystitis POD 1 s/p lap cholecystectomy Evaluated and cleared for discharge by Surgery. Tolerating oral intake. Surgery follow up as out-patient. 2. Possible CBD Dilation US Abdo - mildly dilated CBD Seen by GI - initially recommended MRCP, subsequently cancelled by Surgery after discussion with GI.. Mild elevation in transaminases resolved. No evidence of cholangitis. For GI follow up on discharge. 3. Hx of Alcohol excess No evidence of alcohol withdrawal. Hepatomegaly/Fatty Liver on abdominal imaging - advised regarding importance of alcohol cessation. GI follow up on discharge 4. Depression - continue Sertraline. Medically stable and surgically cleared for discharge. Condition: Good - Instructions Diet, Activity, Other Instructions: Dr. Sandy Discharge Instructions Dear ADELINE DE LA ROSA, You were evaluated for abdominal pain and found to have acute cholecystitis, which is acute infection and inflammation of the gallbladder. You underwent laparoscopic gallbladder removal which was successful. You are now tolerating oral intake without further symptoms. Please be advised that your liver appears enlarged and fatty on imaging. You are advised and counselled regarding ongoing alcohol intake and potential adverse effects on your health. Post Operative Instructions Physical activity Resume your normal everyday activity as tolerated no heavy lifting or exercise until seen by your surgeon. You may walk unlimited amounts of and climb stairs. You may resume driving the car when you feel safe and comfortable behind the wheel. Wound care If you have a bandage, leave it on, and keep dry for 48 - 72 hours. After that time discard the outer bandage. If there are tapes on the skin under the outer bandage, leave them in place. They will peel off in the next 7 to 10 days. Do Not peel them off. You may shower 2 days after surgery. If there are tapes present on the skin, they can get wet. Diet There are no dietary restrictions. Eat healthy, high-fiber foods. Drink 6 to 8 glasses of liquid each day. This will assist in keeping your bowels are regular. Pain management You may take Tylenol or acetaminophen or Ibuprofen (for example, Motrin, Advil etc.) Any pain prescription medication ordered should be taken as prescribed for moderate to severe pain. Call Dr. Sandy for any of the following: Severe pain not relieved by medication Fever of 101 or higher Excessive bleeding or drainage on dressing Inability to urinate Call the office at [phone] for a post operative appointment in 7 - 10 days. Referrals: Shyanne Ware MD [Primary Care Provider] - Rajesh Borden DO [Staff Physician] - Juan Alberto Sandy MD [Staff Physician] - Disposition: HOME - Home Medications Comprehensive Discharge Medication List: Ambulatory Orders Pnv No.95/Ferrous Fum/Folic AC [ Vitamin Tablet] 1 each PO DAILY 09/09/19 Sertraline HCl [Zoloft] 100 mg PO DAILY 09/09/19 Docusate Sodium [Docusate 100 mg] 100 mg PO BID 12/22/19 Ferrous Sulfate 325 mg PO DAILY 12/22/19 Ibuprofen 600 mg PO Q6H 12/22/19 Simethicone 80 mg PO Q6H PRN 12/22/19 oxyCODONE HCL [Roxicodone -] 5 mg PO Q4H PRN #20 tablet MDD 6 12/22/19 Thiamine HCl [B-1] 100 mg PO DAILY #30 tablet 12/23/19 Problem List - Problems (1) Acute calculous cholecystitis Code(s): K80.00 - CALCULUS OF GALLBLADDER W ACUTE CHOLECYST W/O OBSTRUCTION This patient is new to me today: Yes Date on this admission: 12/23/19 Emergency Visit: Yes ED Registration Date: 12/22/19 Care time: The patient presented to the Emergency Department on the above date and was hospitalized for further evaluation of their emergent condition. Critical Care patient: No - Discharge Referral Referred to [facility] Med P.C.: No
--- NOTE | 2019-12-27 16:47 | PATH ---
Surgical Pathology Report Patient Name: ADELINE DE LA ROSA Med. Rec. #: [id number] /Age/Gender: 1985 (Age: 34) / F Account: [id number] Location: [facility] MED/SURG Taken: 12/22/2019 Received: 12/26/2019 Reported: 12/27/2019 Physicians: MD Christian Lennon MD Specimen(s) Received GALLBLADDER Clinical History Cholecystitis/pancreatitis Final Diagnosis GALLBLADDER, CHOLECYSTECTOMY: ACUTE SUPERIMPOSED ON CHRONIC CHOLECYSTITIS. CHOLELITHIASIS. Electronically Signed Dusty Ware M.D. Gross Description Received in formalin, labeled "gallbladder," is an 8.8 x 2.7 x 2.5 cm. gallbladder with a 0.2 cm. in length portion of cystic duct attached. The outer surface is pool-brown with a large defect and varies from smooth to shaggy. The lumen contains mucus and blood clot as well as a 1.0 cm in greatest dimension yellow, spherical cholelith. The mucosa is red-brown and focally eroded. The wall of the gallbladder averages 0.3 cm. in thickness. Humid System Operator sections are submitted in one cassette. /12/26/2019 [facility]12/26/2019
== END 2019-12-23 13:33 | disposition home or self-care (01) | DRG 419 ==
LOC: JER 23:16 → JERBED 12-22 01:32 → J8W 12-22 16:33
PROVIDERS: ADMIT Internal Medicine
PROC: 0FT44ZZ Resection of Gallbladder, Percutaneous Endoscopic Approach (ICD-10-PCS; principal; 2019-12-22 12:00)
DX: K80.12 Calculus of gallbladder with acute and chronic cholecystitis without obstruction (principal); Z68.32 Body mass index [BMI] 32.0-32.9, adult; F32.9 Major depressive disorder, single episode, unspecified; E66.9 Obesity, unspecified
CPT/HCPCS: 36415; 71046-TC-FY; 74177-TC; 76705-TC; 80053; 80061; 80074; 80076; 81003; 82150; 83605; 83690; 83721; 83735; 84100; 84702; 85025; 85027; 85610; 85730; 86850; 86870; 86900; 86901; 86902; 87086; 88304-TC; 93005; 93010; 94010; 94760; 99285-25; J0131; J1644; Q9967; U0003

== ENCOUNTER 2022-12-03 09:37 | Emergency (ER) | payer OTHER ==
[2022-12-03 09:42] VITALS: BMI 31.4
[2022-12-03] MEDS ORDERED: MECLIZINE HCL 25 MG TABLET (FP) PO ONE (10:37)
[2022-12-03] MEDS ORDERED: FAMOTIDINE 20 MG/50 ML IVPB 20 MG/50 ML MG IVPB ONE ×2 (10:37→10:44)
[2022-12-03] MEDS ORDERED: SODIUM CHLORIDE 1,000 ML IV STA ×2 (10:37→11:38)
[2022-12-03] MEDS ORDERED: ONDANSETRON 4 MG/2 ML VIAL IVPUSH ONE (10:37)
[2022-12-03] MEDS ORDERED: MECLIZINE HCL 25 MG TABLET (FP) ONE (10:44)
[2022-12-03] MEDS ORDERED: ONDANSETRON 4 MG/2 ML VIAL ONE (10:44)
[2022-12-03 10:47] LABS: BASO % 0.7 % (0-2.0); EOS % 2.1 % (0-4.5); HEMATOCRIT 34.5 % (32.4-45.2); HEMOGLOBIN 11.6 GM/dL (10.7-15.3); LYMPH % 25.8 % (8-40); MCH 27.8 pg (25.7-33.7); MCHC 33.6 g/dl (32.0-36.0); MEAN CELL VOLUME 82.7 fl (80-96); MEAN PLT VOLUME 8.5 fl (7.5-11.1); MONO % 7.3 % (3.8-10.2); NEUT % 64.1 % (42.8-82.8); PLATELET COUNT 361 10^3/uL (134-434); RBC 4.17 M/mm3 (3.60-5.2); RDW 14.3 % (11.6-15.6); WHITE BLOOD COUNT 5.2 K/mm3 (4.0-10.0)
[2022-12-03 10:51] LABS: EPI CELLS 33 /uL (0-25.1); HYALINE CASTS 1 /uL (0-3.1); PH,URINE 5.5 (5.0-8.0); URINE APPEARANCE CLEAR; URINE BACTERIA 134 /uL (0-1359); URINE BILIRUBIN NEGATIVE (NEGATIVE); URINE COLOR YELLOW; URINE GLUCOSE (UA) NEGATIVE (NEGATIVE); URINE KETONE TRACE (NEGATIVE); URINE LEUK ESTERASE 1+ (NEGATIVE); URINE NITRITE NEGATIVE (NEGATIVE); URINE PROTEIN TRACE (NEGATIVE); URINE RBC 29 /uL (0-23.9); URINE UROBILINOGEN 0.2 mg/dL (0.2-1.0); URINE WBC 16 /uL (0-25.8)
[2022-12-03 11:08] LABS: POTASSIUM 4.9 mmol/L (3.5-5.1)
[2022-12-03 11:10] LABS: CALCIUM 8.8 mg/dL (8.5-10.1)
[2022-12-03 11:11] LABS: ALBUMIN 3.6 g/dl (3.4-5.0); MAGNESIUM 2.3 mg/dL (1.8-2.4)
[2022-12-03 11:14] LABS: CREATININE 0.7 mg/dL (0.55-1.3)
[2022-12-03 11:15] LABS: BILIRUBIN,TOTAL 0.5 mg/dL (0.2-1)
[2022-12-03 11:20] LABS: HCG,QUALITATIVE URINE Negative
[2022-12-03 15:34] VITALS: BP 110/77; PULSE 87; RESP 19; TEMP 99.3
== END 2022-12-03 15:42 | disposition home or self-care (01) ==
LOC: JER 09:37
PROC: 3E033GC Introduction of Other Therapeutic Substance into Peripheral Vein, Percutaneous Approach (ICD-10-PCS; principal; 2022-12-03)
PROC: 3E033GC Introduction of Other Therapeutic Substance into Peripheral Vein, Percutaneous Approach (ICD-10-PCS; 2022-12-03)
PROC: 3E0337Z Introduction of Electrolytic and Water Balance Substance into Peripheral Vein, Percutaneous Approach (ICD-10-PCS; 2022-12-03)
DX: R42 Dizziness and giddiness (principal); R11.2 Nausea with vomiting, unspecified; R10.9 Unspecified abdominal pain; R30.9 Painful micturition, unspecified
CPT/HCPCS: 36415; 80053; 81003; 83690; 83735; 84703; 85025; 87077; 87086; 93005; 93010; 99284-25

== ENCOUNTER 2023-03-05 17:15 | Emergency (ER) | payer OTHER ==
[2023-03-05 17:19] VITALS: BP 123/70; PULSE 80; RESP 18; TEMP 98.2; BMI 30.2
[2023-03-05] MEDS ORDERED: SODIUM CHLORIDE 0.9% 500 ML INFUS.BAG IV ONE (17:55)
[2023-03-05] MEDS ORDERED: ONDANSETRON 4 MG/2 ML VIAL IVPUSH ONE (17:55)
[2023-03-05] MEDS ORDERED: ACETAMINOPHEN 1000 MG/100 ML BAG IVPB ONE (17:55)
[2023-03-05] MEDS ORDERED: FAMOTIDINE 20 MG/50 ML IVPB 20 MG/50 ML MG IVPB ONE ×2 (17:55→18:24)
[2023-03-05] MEDS ORDERED: ONDANSETRON 4 MG/2 ML VIAL ONE (18:15)
[2023-03-05] MEDS ORDERED: ACETAMINOPHEN INJECTION 100 ML IVPB ONE (18:15)
[2023-03-05 18:45] LABS: EPI CELLS 7 /uL (0-25.1); HYALINE CASTS 0 /uL (0-3.1); PH,URINE >= 9.0 (5.0-8.0); URINE APPEARANCE CLEAR; URINE BACTERIA 129 /uL (0-1359); URINE BILIRUBIN NEGATIVE (NEGATIVE); URINE COLOR YELLOW; URINE GLUCOSE (UA) NEGATIVE (NEGATIVE); URINE KETONE NEGATIVE (NEGATIVE); URINE LEUK ESTERASE NEGATIVE (NEGATIVE); URINE NITRITE NEGATIVE (NEGATIVE); URINE PROTEIN 1+ (NEGATIVE); URINE RBC 36 /uL (0-23.9); URINE UROBILINOGEN 0.2 mg/dL (0.2-1.0); URINE WBC 5 /uL (0-25.8)
[2023-03-05 18:47] LABS: BASO % 0.8 % (0-2.0); EOS % 0.2 % (0-4.5); HEMATOCRIT 36.2 % (32.4-45.2); HEMOGLOBIN 12.6 GM/dL (10.7-15.3); LYMPH % 21.6 % (8-40); MCHC 34.7 g/dl (32.0-36.0); MEAN CELL VOLUME 80.7 fl (80-96); MEAN PLT VOLUME 7.5 fl (7.5-11.1); MONO % 6.4 % (3.8-10.2); PLATELET COUNT 424 10^3/uL (134-434); RBC 4.48 M/mm3 (3.60-5.2); RDW 14.1 % (11.6-15.6)
[2023-03-05 19:08] LABS: POTASSIUM 3.7 mmol/L (3.5-5.1)
[2023-03-05 19:10] LABS: ALBUMIN 3.8 g/dl (3.4-5.0); CALCIUM 8.3 mg/dL (8.5-10.1)
[2023-03-05 19:11] LABS: BLOOD UREA NITROGEN 10.6 mg/dL (7-18)
[2023-03-05 19:14] LABS: CREATININE 0.8 mg/dL (0.55-1.3)
[2023-03-05 19:15] LABS: BILIRUBIN,TOTAL 0.4 mg/dL (0.2-1); TOT PROT 7.5 g/dl (6.4-8.2)
== END 2023-03-05 19:54 | disposition home or self-care (01) ==
LOC: JER 17:15
PROC: 3E033GC Introduction of Other Therapeutic Substance into Peripheral Vein, Percutaneous Approach (ICD-10-PCS; principal; 2023-03-05)
PROC: 3E033NZ Introduction of Analgesics, Hypnotics, Sedatives into Peripheral Vein, Percutaneous Approach (ICD-10-PCS; 2023-03-05)
PROC: 3E033GC Introduction of Other Therapeutic Substance into Peripheral Vein, Percutaneous Approach (ICD-10-PCS; 2023-03-05)
DX: R11.2 Nausea with vomiting, unspecified (principal); R10.13 Epigastric pain; R10.30 Lower abdominal pain, unspecified
CPT/HCPCS: 36415; 71046-TC-FY; 80053; 81003; 83690; 84703; 85025; 87077; 87086; 99284-25

== ENCOUNTER 2025-01-16 01:10 | Emergency (ER) | payer OTHER ==
[2025-01-16 01:17] VITALS: TEMP 97.2; BMI 30.2
[2025-01-16] MEDS ORDERED: ACETAMINOPHEN INJECTION 100 ML ONE (01:28)
[2025-01-16] MEDS ORDERED: ONDANSETRON 4 MG/2 ML VIAL ONE (01:28)
[2025-01-16] MEDS ORDERED: FAMOTIDINE 20 MG/50 ML IVPB 20 MG/50 ML MG IVPB ONE (01:29)
[2025-01-16] MEDS: ONDANSETRON 4 MG/2 ML VIAL IVPB ONE (01:47)
[2025-01-16] MEDS: SODIUM CHLORIDE 0.9% 500 ML INFUS.BAG IV ONE (01:48)
[2025-01-16] MEDS: ACETAMINOPHEN 1000 MG/100 ML BAG IVPB ONE (01:51)
[2025-01-16 02:01] LABS: ABSOLUTE IMMATURE GRANULOCYTES 0.02 x10^3/uL (0.0-0.031); BASOPHILS # 0.03 x10^3/uL (0.01-0.08); EOSINOPHIL % 0.3 % (0.7-5.8); EOSINOPHILS # 0.03 x10^3/uL (0.04-0.36); MCHC 32.9 g/dl (32.2-35.5); MEAN CELL VOLUME 82.5 fl (79.4-94.8); MEAN PLT VOLUME 10.1 fl (9.4-12.3); MONOCYTE # 0.44 x10^3/uL (0.24-0.86); MONOCYTE % 4.6 % (4.7-12.5); RDW 13.9 % (12.1-16.8)
[2025-01-16] MEDS: FAMOTIDINE 20 MG/50 ML IVPB 20 MG/50 ML MG IVPB ONE (02:11)
[2025-01-16 02:14] VITALS: BP 114/44; PULSE 57; RESP 14
[2025-01-16 03:06] LABS: CO2 22.0 mmol/L (21-32); GLUCOSE,RANDOM 128.0 mg/dL (74-106)
[2025-01-16 03:09] LABS: CREATININE 0.9 mg/dL (0.55-1.3); SGOT/AST 50.0 U/L (15-37); SGPT/ALT 47.0 U/L (13-61)
[2025-01-16 03:10] LABS: TOT PROT 7.5 g/dl (6.4-8.2)
[2025-01-16 03:11] LABS: ALK PHOS 80.0 U/L (45-117)
[2025-01-16 04:37] LABS: HIV INTERPRETATION NEGATIVE (NEGATIVE)
[2025-01-16 04:38] LABS: HCV DIAGNOSTIC IN-HOUSE W/RFLX NON-REACTIVE (NONREACTIVE)
== END 2025-01-16 03:35 | disposition home or self-care (01) ==
LOC: JER 01:10
PROC: 3E033GC Introduction of Other Therapeutic Substance into Peripheral Vein, Percutaneous Approach (ICD-10-PCS; principal; 2025-01-16)
PROC: 3E033GC Introduction of Other Therapeutic Substance into Peripheral Vein, Percutaneous Approach (ICD-10-PCS; 2025-01-16)
PROC: 3E033NZ Introduction of Analgesics, Hypnotics, Sedatives into Peripheral Vein, Percutaneous Approach (ICD-10-PCS; 2025-01-16)
DX: R11.2 Nausea with vomiting, unspecified (principal); R19.7 Diarrhea, unspecified; R00.0 Tachycardia, unspecified; R10.12 Left upper quadrant pain; R10.13 Epigastric pain; R03.1 Nonspecific low blood-pressure reading
CPT/HCPCS: 36415; 80053; 83690; 84484; 84703; 85025; 86803; 87389; 93005; 93010; 96365; 96375; 99284-25